=== PATIENT | female | born 1945 | race Caucasian/White ===

== ENCOUNTER → 2017-01-05 | Outpatient (CLI) | payer MEDICARE, BC ==
[~2017-01-05] MED LIST: COUMADIN5 MG PO; ENDOCET 5-3251 EACH; FUROSEMIDE40 MG PO; K-DUR20 ME1 PO; LASIX; LEXAPRO PO; LOVENOX SUBQ; MUCINEX1200 MG/BO; PROTONIX PO; SINGULAIR; SINGULAIR PO; ZOCOR80 MG PO
--- NOTE | ~2017-01-05 | CR172 ---
[facility] A Service of [facility] RADIOLOGY TEXT RESULTS PATIENT: FANNY VICTOR LOCATION: [facility] : 49 UNIT #: [id number] AGE: [address]: Ysabel Norman MD SEX: F ORDER DR: [id number] [facility] [address]. [place], [place] [address] [id number] MR#: [id number] Acc #: [id number] NAME: AFNNY VICTOR : 1945 SEX: F STUDY DATE/TIME: 01/05/2017 14:55 UNIT: [facility] ROOM: STUDY DESCRIPTION: CR Knee 3 Views Lt Attending Physician: Ysabel Norman M.D. Referring Physician: Ysabel Norman M.D. Ordering Physician: Ysabel Norman M.D. Primary Care Physician: Ysabel Norman M.D. MEDICAL IMAGING REPORT This report is preliminary unless electronic signature is present EXAM 3 views left knee DATE 01/05/2017 HISTORY 71-year-old female with left knee osteoarthritis. Left knee pain and swelling for 2 weeks. No known injury. Pain greatest medially. COMPARISON None FINDINGS No fracture. No dislocation. No joint effusion. Mild tricompartment joint space narrowing. Small superolateral patellar osteophyte. No osteolytic or osteoblastic abnormalities. IMPRESSION Mild tricompartment degenerative joint space narrowing. No acute abnormality of the left knee. Dictated by... Diane Keating M.D. THIS IS AN ELECTRONICALLY VERIFIED REPORT Diane Keating M.D. at 01/07/2017 9:35 PM [facility]/to TD: 01/05/2017 18:18 JOB #: [id number] MEDICAL IMAGING REPORT [facility] A Service of [facility] & [facility] RADIOLOGY TEXT RESULTS PATIENT: FANNY VICTOR LOCATION: [facility] : 49 UNIT #: [id number] AGE: [address]: Ysabel Norman MD SEX: F ORDER DR: Page 1 of 1 COPY
== END | disposition home or self-care (01) ==
LOC: CRAD 14:45
DX: M17.12 Unilateral primary osteoarthritis, left knee (principal)
CPT/HCPCS: 73562